=== PATIENT | female | born 1995 | race Caucasian/White ===

== ENCOUNTER 2016-06-02 15:09 | Emergency (ER) | payer OTHER ==
[~2016-06-02] VITALS: Ht 162.6 cm; Wt 66.1 kg
[~2016-06-02 15:09] MED LIST: MULT-240 PO; [UNRECOGNIZED DRUG - OTHER] PO
[2016-06-02 15:18] VITALS: BP 113/75; TEMP 37; O2SAT 100; Ht 162.6 cm; Wt 66.1 kg
[2016-06-02] MEDS ORDERED: PROPARACAINE HCL 0.5% OP SOLN 15 ML BTL OP STA (15:24)
[2016-06-02] MEDS ORDERED: CIPR0.3S OP (15:48)
[2016-06-02 16:04] VITALS: PULSE 82
--- NOTE | 2016-06-02 19:56 | EMERGENCY ROOM VISIT NOTE ---
ED Visit Note First contact with patient: 15:22 Chief Complaint: Conjunctivitis. History of Present Illness: Ms. Vides is a 21-year-old female who ambulates into the ED complaining of right eye pain, drainage and light sensitivity. Historically patient she has no previous significant eye disease and does wear contacts and reports a history of dry eyes. Patient reports for the last 2 weeks she has been having a burning and stinging pain in the right eye, she has noted injection of her sclera, she has been having light sensitivity, tearing and her eye is matted shut after sleep. She reports initially this was mild but has gradually increased in intensity. Currently she rates her discomfort 7/10. Her pain worsens with exposure to bright light and swelling decreases and she is in a darkened environment. She has not taken any medications for her discomfort prior to arrival at the hospital. In addition to the symptoms noted above she does report she feels like her vision is slightly more blurry. She denies recent trauma to the eye, fevers, chills, sweats, swelling or redness around the orbits, halos, flashing lights, floaters, puslike drainage, decrease in vision. Review of Systems: As noted above in history of present illness. Past Medical History: Patient denies. Current Medications: Multivitamins. Allergies to Medications: Patient denies. 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 Physical Examination: Vital Signs: Date Time Temp Pulse Resp B/P Pulse Ox O2 Delivery O2 Flow Rate FiO2 06/02/16 16:04 82 16 06/02/16 15:18 37.0 84 18 113/75 100 Room Air GENERAL: 21-year-old female in mild distress due to symptoms, nontoxic-appearing , afebrile and hemodynamically stable. NEUROLOGICAL: Awake, alert and oriented to person, place and time. Answering questions appropriately and following commands. Normal gait. Good hand eye coordination. No focal motor sensory deficits. SKIN: Warm, dry and pink. No soft tissue eruptions or trauma noted. HEENT: Atraumatic and normocephalic. Eyes: PERRLA. EOMI. Sclera injected and conjunctiva pink without drainage. Light sensitivity on examination. No foreign bodies noted under the eyelids are embedded in the cornea. Anterior chamber is clear. Visual acuity: 20/100 bilaterally without correction. Staining examination shows punctate uptake of the dye over most cornea and no corneal ulcers identified. ED Course: Patient is assessed as noted above. Alcaine was used to anesthetize the eye for examination. Patient was educated about tonight's findings and instructed on her treatment plan; she verbalized understanding and agreement with this plan. Clinical Impression: Right superficial punctate keratitis. Disposition: Patient discharged home in stable condition accompanied by a male friend; prior to departure she was reassessed and subjectively reported she was feeling better. Plan: Patient was prescribed Ciloxan ophthalmic drops and encouraged to use 2 drops in the right eye every 4 hours while awake for 5 days. Patient was encouraged to alternate ibuprofen and acetaminophen as needed for pain and to avoid direct sunlight with sunglasses. Patient was encouraged to return to the ED in 36-48 hours for recheck or sooner for any worsening/uncontrolled pain, visual changes, fevers, severe headaches or any new/concerning symptoms.
== END 2016-06-02 16:05 | disposition home or self-care (01) ==
LOC: C.EDB 15:10 → C.EDD 16:05
DX: H16.8 Other keratitis (principal)

== ENCOUNTER 2016-11-05 17:12 | Emergency (ER) | payer OTHER ==
[~2016-11-05] VITALS: Ht 162.6 cm; Wt 61.8 kg
[2016-11-05 17:22] VITALS: TEMP 36.7; Ht 162.6 cm; Wt 61.8 kg
--- NOTE | 2016-11-05 17:39 | EMERGENCY ROOM VISIT NOTE ---
History Report prepared by Aj: Ruth Lemons Under the Supervision of: Dr. Burton Haider M.D. First contact with patient: 17:25 Chief Complaint: VAGINAL BLEEDING Stated Complaint: BLEEDING, BLUE/BLACK VEINS ON ARM History of Present Illness The patient is a 21 year old female who presents to the Emergency Room with complaints of increasing vaginal bleeding starting today. She reports that the bleeding usually lasts 2-3 hours. The patient reports that sexual intercourse causes it and that she had these symptoms last spring. She also notes that her bilateral arms are bruised and that she can see her veins, which is not normal for her. The patient reports that she is not on control. The patient denies back pain, abdominal pain, headache, vomiting, diarrhea, pain with urination, and blood in her urine. She denies any recent trauma or injury. Source of History: patient, friend Onset: today Position: other (vagina ) Quality: other (bleeding ) Timing: other (increasing ) Associated Symptoms: No headache, No vomiting, No abdominal pain, No back pain, No diarrhea, No urinary symptoms Review of Systems See HPI for pertinent positives & negatives. A total of 10 systems reviewed and were otherwise negative. Past Medical & Surgical Medical Problems: (1) No active medical problems Family History Diabetes mellitus Social History Smoking Status: Never Smoker Drug Use: none Marital Status: in relationship Housing Status: lives with roommate Current/Historical Medications No Active Prescriptions or Reported Meds Allergies Coded Allergies: No Known Allergies (Unverified , 11/05/16) Physical Exam Vital Signs Date Time Temp Pulse Resp B/P (MAP) Pulse Ox O2 Delivery O2 Flow Rate FiO2 11/05/16 19:16 79 18 123/79 100 11/05/16 17:22 36.7 88 18 128/74 100 Room Air Physical Exam General: Well developed well nourished non-ill young female in no acute distress , breathing comfortably on room air. Normal speech HEENT: Normal cephalic atraumatic. Pupils are equal round and reactive to light. Extraocular movements are intact. Oropharynx is pink with moist mucous membranes. No swelling of the mouth lips or tongue. Neck: Supple with a midline trachea. No meningeal signs or stiffness, no JVD or bruits. No Stridor. Chest: Clear to auscultation bilaterally. No wheezes or rhonchi. No increased work of breathing. Heart: regular rate and rhythm. Abdomen: Soft nontender, nondistended without rebound guarding or rigidity. Extremities: No cyanosis clubbing or edema. No calf tenderness or assymetry Spine/Back. Non tender to palpation. No CVA tenderness Skin: Good turgor without rashes. Visible veins on both arms, no bruising or pathologic changes. Pelvic (In the presence of a female nurse sales communications manager): Normal external female genitalia, no lesions, normal cervix, small amount of dry blood, no lesions or discharge, no cervical motion tenderness, no adnexal masses or tenderness Neurologic exam: Cranial nerves two through 12 are intact. Motor and sensation are intact and symmetrical throughout. Medical Decision & Procedures Laboratory Results 11/05/16 18:14 Red Blood Count 4.50, Mean Corpuscular Volume 89.8, Mean Corpuscular Hemoglobin 30.4, Mean Corpuscular Hemoglobin Concent 33.9, Mean Platelet Volume 11.9, Neutrophils (%) (Auto) 55.5, Lymphocytes (%) (Auto) 34.2, Monocytes (%) (Auto) 7.4, Eosinophils (%) (Auto) 2.3, Basophils (%) (Auto) 0.4, Neutrophils # (Auto) 3.17, Lymphocytes # (Auto) 1.95, Monocytes # (Auto) 0.42, Eosinophils # (Auto) 0.13, Basophils # (Auto) 0.02 11/05/16 18:14 Test 11/05/16 18:14 11/05/16 18:30 White Blood Count 5.70 K/uL (4.8-10.8) Red Blood Count 4.50 M/uL (4.2-5.4) Hemoglobin 13.7 g/dL (12.0-16.0) Hematocrit 40.4 % (37-47) Mean Corpuscular Volume 89.8 fL (80-100) Mean Corpuscular Hemoglobin 30.4 pg (25-34) Mean Corpuscular Hemoglobin Concent 33.9 g/dl (32-36) Platelet Count 198 K/uL (130-400) Mean Platelet Volume 11.9 fL (7.4-10.4) Neutrophils (%) (Auto) 55.5 % Lymphocytes (%) (Auto) 34.2 % Monocytes (%) (Auto) 7.4 % Eosinophils (%) (Auto) 2.3 % Basophils (%) (Auto) 0.4 % Neutrophils # (Auto) 3.17 K/uL (1.4-6.5) Lymphocytes # (Auto) 1.95 K/uL (1.2-3.4) Monocytes # (Auto) 0.42 K/uL (0.11-0.59) Eosinophils # (Auto) 0.13 K/uL (0-0.5) Basophils # (Auto) 0.02 K/uL (0-0.2) RDW Standard Deviation 43.1 fL (36.4-46.3) RDW Coefficient of Variation 13.1 % (11.5-14.5) Immature Granulocyte % (Auto) 0.2 % Immature Granulocyte # (Auto) 0.01 K/uL (0.00-0.02) Anion Gap 8.0 mmol/L (3-11) Est Creatinine Clear Calc Drug Dose 83.4 ml/min Estimated GFR () 102.5 Estimated GFR (Non- 88.5 BUN/Creatinine Ratio 22.1 (10-20) Calcium Level 8.8 mg/dl (8.5-10.1) Human Chorionic Gonadotropin, Qual NEG (NEG) Date/Time Source Procedure Growth Status 11/05/16 18:30 Cervix Swab Trichomonas Preparation - Final Complete Laboratory studies as stated above per my review. Medications Administered Medications (Trade) Dose Ordered Sig/Nicolasa Route Start Time Stop Time Status Last Admin Dose Admin Sodium Chloride 1,000 ml @ 999 mls/hr Q1H1M STAT IV 11/05/16 17:41 11/05/16 18:41 DC 11/05/16 17:41 999 MLS/HR ED Course 1730: Past medical records reviewed. The patient was evaluated in room C7, and a complete history and physical examination were performed. 1741: Ordered Sodium Chloride 1,000 ml @ 999 mls/hr IV. 1918: Upon reevaluation, the patient is C7. I discussed the results and treatment plan with her. She verbalized agreement of the treatment plan. The patient was discharged home. Medical Decision Differentials include, but are not limited to; , infection, anemia, and ectopic . This patient comes in as described above she's had vaginal bleeding after intercourse. She appears well on exam. She's had no pain or discharge. On pelvic exam, she has no cervical motion tenderness or anything to suggest PID. She has no lesions. She's not anemic. She is not . The rest of her blood work is unremarkable . She was hydrated IV normal saline. She's remained stable. I recommend she follow up with the student health clinic and maybe see a lathe machinist this week. She should return if: increasing pain or bleeding, or symptoms, any new problems or concerns. She is happy the plan and discharged to home. Medication Reconcilliation Current Medication List: was personally reviewed by me Blood Pressure Screening Patient's blood pressure: Normal blood pressure Impression Primary Impression: Vaginal bleeding Scribe Attestation The scribe's documentation has been prepared under my direction and personally reviewed by me in its entirety. I confirm that the note above accurately reflects all work, treatment, procedures, and medical decision making performed by me. Departure Information Dispostion Home / Self-Care Prescriptions No Active Prescriptions or Reported Meds Referrals [facility] (PCP) Forms HOME CARE DOCUMENTATION FORM, IMPORTANT VISIT INFORMATION, WORK / SCHOOL INSTRUCTIONS Patient Instructions My [facility] Additional Instructions Rest. Return if: Increasing pain or bleeding, worsening of symptoms, fever or chills, any new problems or concerns. Follow-up with the student health clinic/ lathe machinist this coming week for recheck
[2016-11-05] MEDS ORDERED: SODIUM CHLORIDE 0.9% 1000ML 1,000 ML IV STA (17:41)
[2016-11-05 18:26] LABS: BASO % 0.4 %; BASO ABS # 0.02 K/uL (0-0.2); COMPLETE YES; EOS % 2.3 %; HEMATOCRIT 40.4 % (37-47); IG% 0.2 %; LYMPH % 34.2 %; LYMPH ABS # 1.95 K/uL (1.2-3.4); MEAN CELL VOLUME 89.8 fL (80-100); MEAN CORPUSCULAR HEMOGLOBIN 30.4 pg (25-34); MEAN CORPUSCULAR HGB CONC 33.9 g/dl (32-36); MEAN PLATELET VOLUME 11.9 fL (7.4-10.4); MONO % 7.4 %; NEUT % 55.5 %; PLATELET COUNT 198 K/uL (130-400)
[2016-11-05 18:42] LABS: BUN/CREATININE RATIO 22.1 (10-20); CALCIUM 8.8 mg/dl (8.5-10.1); CREATININE 0.93 mg/dl (0.60-1.20)
[2016-11-05 18:48] LABS: PREG INTERNAL NEGATIVE QC NEG CLEAR BACKGROUND; PREG INTERNAL POSITIVE QC POS CONTROL LINE
[2016-11-05 19:16] VITALS: BP 123/79; PULSE 79; O2SAT 100
[2016-11-08 14:29] LABS: CHLAMYDIA TRACH RNA*** DETECTED (NOT DETECTED); GC (NEIS GONORRHOEAE)RNA** NOT DETECTED (NOT DETECTED)
--- NOTE | 2016-11-10 19:02 | Pharmacy Progress Note ---
ED Pharmacist Culture FollowUp Date of Service: Nov 10, 2016. Called patient regarding Chlamydia culture. Notified of positive result. Patient denied abdominal/pelvic pain. Counseled on need for further outpatient followup for additional testing, need to notify all sexual partners, and to refrain from sexual activity for 1 month. Preferred pharmacy is [facility] - does not accept verbal prescriptions. Prescription for azithromycin 500 mg tab, 2 tab po once, 0 refill, handwritten on [facility] prescription pad and faxed to [phone] at the patient's request. Case discussed with Dr. Cavazos, who is the prescribing provider.
== END 2016-11-05 19:16 | disposition home or self-care (01) ==
LOC: C.EDB 17:12 → C.EDC 19:16
DX: N93.9 Abnormal uterine and vaginal bleeding, unspecified (principal)

== ENCOUNTER 2017-03-21 09:38 | Emergency (ER) | payer OTHER ==
[~2017-03-21] VITALS: Ht 162.6 cm; Wt 60.2 kg
[2017-03-21 09:43] VITALS: TEMP 36.8; Ht 162.6 cm; Wt 60.2 kg
[2017-03-21] MEDS ORDERED: ONDANSETRON INJ 2 MG/ML 2 ML VIAL IV STA (09:59)
[2017-03-21] MEDS ORDERED: SODIUM CHLORIDE 0.9% 1000ML 1,000 ML IV STA (09:59)
[2017-03-21 10:35] LABS: EOS % 1.1 %; EOS ABS # 0.08 K/uL (0-0.5); HEMATOCRIT 39.5 % (37-47); HEMOGLOBIN 13.5 g/dL (12.0-16.0); IG# 0.01 K/uL (0.00-0.02); LYMPH ABS # 1.29 K/uL (1.2-3.4); MEAN CELL VOLUME 89.4 fL (80-100); MEAN CORPUSCULAR HEMOGLOBIN 30.5 pg (25-34); MEAN CORPUSCULAR HGB CONC 34.2 g/dl (32-36); MEAN PLATELET VOLUME 12.6 fL (7.4-10.4); MONO % 5.2 %; MONO ABS # 0.37 K/uL (0.11-0.59); NEUT % 75.6 %; NEUT ABS # 5.43 K/uL (1.4-6.5); PLATELET COUNT 169 K/uL (130-400); RED CELL DISTRIBUTION WIDTH CV 12.8 % (11.5-14.5); RED CELL DISTRIBUTION WIDTH SD 41.7 fL (36.4-46.3); WHITE BLOOD COUNT 7.18 K/uL (4.8-10.8)
[2017-03-21 10:44] LABS: PTT PATIENT 30.2 SECONDS (21.0-31.0)
[2017-03-21 10:54] LABS: ALBUMIN 4.1 gm/dl (3.4-5.0); CALCIUM 9.1 mg/dl (8.5-10.1); CREATININE 0.64 mg/dl (0.60-1.20); POTASSIUM 3.8 mmol/L (3.5-5.1)
[2017-03-21 10:56] LABS: TOTAL PROTEIN 7.6 gm/dl (6.4-8.2)
[2017-03-21 11:39] VITALS: O2SAT 100
--- NOTE | 2017-03-21 13:06 | DIAGNOSTIC IMAGING REPORT ---
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 The endometrial stripe measured 6 mm. The right ovary measured 2.5 cm maximum dimension with normal vascular flow. The left ovary measured 3.1 cm maximum dimension with normal vascular flow. There is no ultrasonographic evidence of ovarian torsion. It should be noted that ovarian torsion can be present with normal Doppler ultrasonographic findings. There was no evidence of pathologic free pelvic fluid. IMPRESSION: Normal study The above report was generated using voice recognition software. It may contain grammatical, syntax or spelling errors. Electronically signed by: Jose De Jesus Tomlinson M.D. 03/21/2017 1:04 PM Dictated Date/Time: 03/21/2017 1:03 PM
[2017-03-21 13:45] VITALS: BP 107/62; PULSE 76; O2SAT 100
[2017-03-21] MEDS ORDERED: NORETHINDRONE ACETATE 5 MG TAB PO SCH (13:45)
--- NOTE | 2017-03-21 16:12 | EMERGENCY ROOM VISIT NOTE ---
History Report prepared by Aj: Phil Roger Under the Supervision of: Dr. aHrris Cavazos D.O. First contact with patient: 09:53 Chief Complaint: ED VAG BLEEDING Stated Complaint: EXCESSIVE BLEEDING History of Present Illness The patient is a 21 year old female who presents to the Emergency Room with complaints of worsening vaginal bleeding that started 2 and a half weeks ago. She states that it all started when her period was scheduled to start, and at first, the bleeding was very light. The patient notes that the bleeding has then progressively gotten heavier each day, and 2 days ago, her bleeding became so excessive that she is going through 1 pad every half hour. The patient states that she normally has heavy periods but never this heavy. She says that her periods are normally regular. She denies any abdominal pain, nausea, vomiting, diarrhea, or pain or burning with urination. She adds that she took Plan B a full month ago, and is not on control. She states that she was not at that time. She notes no chronic medical problems. The patient says that [employer] and [employer]S SALES REPRESENTAT[employer] do not take her insurance. She still has her gallbladder and appendix. Source of History: patient Onset: 2 and a half weeks ago Position: other (vaginal) Symptom Intensity: a pad every half hour Quality: other (bleeding) Timing: worsening Associated Symptoms: No nausea, No vomiting, No abdominal pain, No diarrhea , No urinary symptoms Note: No other associated symptoms noted. Review of Systems See HPI for pertinent positives & negatives. A total of 10 systems reviewed and were otherwise negative. Past Medical & Surgical Medical Problems: (1) No active medical problems Family History Diabetes mellitus Social History Smoking Status: Never Smoker Drug Use: none Marital Status: in relationship Housing Status: lives with roommate Current/Historical Medications No Active Prescriptions or Reported Meds Allergies Coded Allergies: No Known Allergies (Unverified , 03/21/17) Physical Exam Vital Signs Date Time Temp Pulse Resp B/P (MAP) Pulse Ox O2 Delivery O2 Flow Rate FiO2 03/21/17 13:45 76 16 107/62 100 Room Air 03/21/17 11:39 100 Room Air 03/21/17 11:39 64 16 108/69 100 Room Air 03/21/17 09:43 36.8 100 18 116/80 98 Room Air Physical Exam GENERAL: Sitting up in bed, alert, well appearing, well nourished, no distress, non-toxic EYE EXAM: normal conjunctiva. OROPHARYNX: no exudate, no erythema, lips, buccal mucosa, and tongue normal and mucous membranes are moist NECK: supple, no nuchal rigidity, no adenopathy, non-tender LUNGS: Clear to auscultation. Normal chest wall mechanics HEART: no murmurs, S1 normal and S2 normal ABDOMEN: abdomen soft, non-tender, normo-active bowel sounds, no masses, no rebound or guarding. : Normal external genitalia. Blood and clots in vaginal vault, removed with q- tips. Half-dollar sized clot removed. Vaginal vault continues to fill with small amount of blood from cervix which is closed. BACK: Back is symmetrical on inspection and there is no deformity, no midline tenderness, no CVA tenderness. SKIN: no rashes and no bruising UPPER EXTREMITIES: upper extremities are grossly normal. LOWER EXTREMITIES: No pitting edema. NEURO EXAM: Normal sensorium, cranial nerves II-XII grossly intact, normal speech, no gross weakness of arms, no gross weakness of legs. 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 The endometrial stripe measured 6 mm. The right ovary measured 2.5 cm maximum dimension with normal vascular flow. The left ovary measured 3.1 cm maximum dimension with normal vascular flow. There is no ultrasonographic evidence of ovarian torsion. It should be noted that ovarian torsion can be present with normal Doppler ultrasonographic findings. There was no evidence of pathologic free pelvic fluid. IMPRESSION: Normal study The above report was generated using voice recognition software. It may contain grammatical, syntax or spelling errors. Electronically signed by: Jose De Jesus Tomlinson M.D. 03/21/2017 1:04 PM Dictated Date/Time: 03/21/2017 1:03 PM Laboratory Results 03/21/17 10:12 Red Blood Count 4.42, Mean Corpuscular Volume 89.4, Mean Corpuscular Hemoglobin 30.5, Mean Corpuscular Hemoglobin Concent 34.2, Mean Platelet Volume 12.6, Neutrophils (%) (Auto) 75.6, Lymphocytes (%) (Auto) 18.0, Monocytes (%) (Auto) 5.2, Eosinophils (%) (Auto) 1.1, Basophils (%) (Auto) 0.0, Neutrophils # (Auto) 5.43, Lymphocytes # (Auto) 1.29, Monocytes # (Auto) 0.37, Eosinophils # (Auto) 0.08, Basophils # (Auto) 0.00 03/21/17 10:12 Test 03/21/17 10:12 03/21/17 13:04 White Blood Count 7.18 K/uL (4.8-10.8) Red Blood Count 4.42 M/uL (4.2-5.4) Hemoglobin 13.5 g/dL (12.0-16.0) Hematocrit 39.5 % (37-47) Mean Corpuscular Volume 89.4 fL (80-100) Mean Corpuscular Hemoglobin 30.5 pg (25-34) Mean Corpuscular Hemoglobin Concent 34.2 g/dl (32-36) Platelet Count 169 K/uL (130-400) Mean Platelet Volume 12.6 fL (7.4-10.4) Neutrophils (%) (Auto) 75.6 % Lymphocytes (%) (Auto) 18.0 % Monocytes (%) (Auto) 5.2 % Eosinophils (%) (Auto) 1.1 % Basophils (%) (Auto) 0.0 % Neutrophils # (Auto) 5.43 K/uL (1.4-6.5) Lymphocytes # (Auto) 1.29 K/uL (1.2-3.4) Monocytes # (Auto) 0.37 K/uL (0.11-0.59) Eosinophils # (Auto) 0.08 K/uL (0-0.5) Basophils # (Auto) 0.00 K/uL (0-0.2) RDW Standard Deviation 41.7 fL (36.4-46.3) RDW Coefficient of Variation 12.8 % (11.5-14.5) Immature Granulocyte % (Auto) 0.1 % Immature Granulocyte # (Auto) 0.01 K/uL (0.00-0.02) Prothrombin Time 10.8 SECONDS (9.0-12.0) Prothromb Time International Ratio 1.0 (0.9-1.1) Activated Partial Thromboplast Time 30.2 SECONDS (21.0-31.0) Partial Thromboplastin Ratio 1.2 Anion Gap 3.0 mmol/L (3-11) Est Creatinine Clear Calc Drug Dose 121.2 ml/min Estimated GFR () 148.9 Estimated GFR (Non- 128.5 BUN/Creatinine Ratio 17.5 (10-20) Calcium Level 9.1 mg/dl (8.5-10.1) Total Bilirubin 0.4 mg/dl (0.2-1) Aspartate Amino Transf (AST/SGOT) 9 U/L (15-37) Alanine Aminotransferase (ALT/SGPT) 15 U/L (12-78) Alkaline Phosphatase 73 U/L (45-117) Total Protein 7.6 gm/dl (6.4-8.2) Albumin 4.1 gm/dl (3.4-5.0) Globulin 3.5 gm/dl (2.5-4.0) Albumin/Globulin Ratio 1.2 (0.9-2) Urine Color YELLOW Urine Appearance CLEAR (CLEAR) Urine pH 7.0 (4.5-7.5) Urine Specific [place] 1.012 (1.000-1.030) Urine Protein NEG (NEG) Urine Glucose (UA) NEG (NEG) Urine Ketones NEG (NEG) Urine Occult Blood NEG (NEG) Urine Nitrite NEG (NEG) Urine Bilirubin NEG (NEG) Urine Urobilinogen NEG (NEG) Urine Leukocyte Esterase NEG (NEG) Urine WBC (Auto) 0 /hpf (0-5) Urine RBC (Auto) 0-4 /hpf (0-4) Urine Hyaline Casts (Auto) 1-5 /lpf (0-5) Urine Epithelial Cells (Auto) 10-20 /lpf (0-5) Urine Bacteria (Auto) NEG (NEG) Urine Test NEG (NEG) Laboratory results per my review. Medications Administered Medications (Trade) Dose Ordered Sig/Nicolasa Route Start Time Stop Time Status Last Admin Dose Admin Ondansetron HCl (Zofran Inj) 4 mg NOW STAT IV 03/21/17 09:59 03/21/17 10:01 DC 03/21/17 10:18 4 MG Sodium Chloride 1,000 ml @ 999 mls/hr Q1H1M STAT IV 03/21/17 09:59 03/21/17 10:59 DC 03/21/17 10:18 999 MLS/HR Norethindrone Acetate (Aygestin Tab) 10 mg ONE PO 03/21/17 13:45 03/21/17 14:30 DC 03/21/17 14:26 10 MG ED Course ED COURSE: Vital signs were reviewed and showed tachycardic vitals. The patients medical record was reviewed The above diagnostic studies were performed and reviewed. ED treatments and interventions as stated above. 0954: The patient was evaluated in room C9. A complete history and physical examination was performed. 0959: Ordered NSS 1000 ml @ 999 mls/hr IV, Zofran Inj 4 mg IV. 1155: I reevaluated the patient and she is going to US. 1329: I discussed the patient with Dr. Epi [facility]. 1335: Upon reevaluation, the patient is resting comfortably.I discussed my findings with the patient and she understands and agrees with the treatment plan. Based on the patients age, coexisting illnesses, exam and lab findings the decision to treat as an outpatient was made. The patient remained stable while under my care. The patient appeared well at the time of discharge. 1345: Ordered Aygestin Tab 10 mg PO. Medical Decision Differential diagnoses includes but is not limited to appendicitis, diverticulitis, small bowel obstruction, malignancy, hernia, urinary tract infection, torsion, and ectopic (if female), perforation, trauma, infectious. Patient is a 21-year-old female with no significant past medical history, who denies any bleeding disorders and blood thinners that presents to ER for vaginal bleeding which has been present for the past 10 days. She notes that the past 2 days and has worsened. Denies any other symptoms. No abdominal pain. CBC all BMP, LFTs, bilirubin was unremarkable. INR was normal. HGB was unremarkable and was negative. Ultrasound of the uterus was completely unremarkable. Discussed my findings with her on Aygestin. Patient was updated at bedside. She is given 10 mg now. She was discharged taken over 10 mg tonight and given discharge instructions on how to proceed from there. She will follow-up with OB as an outpatient and return for any worsening of her symptoms. Discussed with Pt concerning signs and symptoms to watch out for. Pt was instructed to follow up with their PCP and discussed with the patient their option to return to the ED at anytime for persistent or worsening symptoms. The appropriate anticipatory guidance and out-patient management, including indications for return to the emergency department, were explained at length to the patient and understood. Medication Reconcilliation Current Medication List: was personally reviewed by me Blood Pressure Screening Patient's blood pressure: Normal blood pressure Consults Time Called: 1320 Consulting Physician: Dr. Epi Lancaster Returned Call: 1329 I discussed the patient with Dr. Epi Lancaster. Impression Primary Impression: Vaginal bleeding Scribe Attestation The scribe's documentation has been prepared under my direction and personally reviewed by me in its entirety. I confirm that the note above accurately reflects all work, treatment, procedures, and medical decision making performed by me. Departure Information Dispostion Home / Self-Care Prescriptions No Active Prescriptions or Reported Meds Referrals No Doctor, Assigned (PCP) Canan. Saini MD Patient Instructions ED Bleed Irregular Vaginal, My [facility] [employer] Additional Instructions Please follow up with your primary care doctor with in the next 24 hours. Any worsening of your symptoms, please return to the ED immediately. This includes any fevers greater than 100.4, worsening pain, chest pain, shortness breath, persistent nausea, vomiting, unable to eat or drink, or any other concerning signs or symptoms from your standpoint. Please take Aygestin 10 mg tonight. Tomorrow you will take 5 mg 3 times a day until your bleeding decreases. When your bleeding decreases please start taking 5 mg twice a day. When her bleeding stops take 1 tab daily These follow-up with OB/Within the Next 2-3 Days.
--- NOTE | 2017-03-23 09:07 | DIAGNOSTIC IMAGING REPORT ---
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 The endometrial stripe measured 6 mm. The right ovary measured 2.5 cm maximum dimension with normal vascular flow. The left ovary measured 3.1 cm maximum dimension with normal vascular flow. There is no ultrasonographic evidence of ovarian torsion. It should be noted that ovarian torsion can be present with normal Doppler ultrasonographic findings. There was no evidence of pathologic free pelvic fluid. IMPRESSION: Normal study The above report was generated using voice recognition software. It may contain grammatical, syntax or spelling errors. Electronically signed by: Jose De Jesus Tomlinson M.D. 03/21/2017 1:04 PM Dictated Date/Time: 03/21/2017 1:03 PM
--- NOTE | 2017-03-23 17:55 | Pharmacy Progress Note ---
ED Pharmacist Progress Note Date of Service: Mar 23, 2017. Answered call from patient. She expressed concerns medication Aygestin, prescribed during visit is not working as she is still bleeding. Has not followed up with OB because no OB providers are covered by her insurance in the area. Says bleeding has not worsened but has not gotten better. Discussed with Dr. Shook who said patient can either come in for re-evaluation if concerned or follow up with closest insured OB or pay for uninsured OB visit. Relayed information to patient.
== END 2017-03-21 14:15 | disposition home or self-care (01) ==
LOC: C.EDB 09:40 → C.EDC 14:15
DX: N93.9 Abnormal uterine and vaginal bleeding, unspecified (principal)

== ENCOUNTER 2017-03-24 16:55 | Observation (INO) | payer OTHER ==
[~2017-03-24] VITALS: Ht 162.6 cm; Wt 61.0 kg
[2017-03-24] MEDS ORDERED: NORE5TAB5 PO (17:50)
[2017-03-24] MEDS ORDERED: SODIUM CHLORIDE 0.9% 1000ML 1,000 ML IV STA (18:06)
[2017-03-24 18:28] LABS: BASO % 0.2 %; BASO ABS # 0.01 K/uL (0-0.2); EOS % 2.1 %; EOS ABS # 0.11 K/uL (0-0.5); HEMATOCRIT 27.8 % (37-47); HEMOGLOBIN 9.6 g/dL (12.0-16.0); IG# 0.01 K/uL (0.00-0.02); LYMPH % 41.3 %; LYMPH ABS # 2.14 K/uL (1.2-3.4); MEAN CORPUSCULAR HEMOGLOBIN 30.4 pg (25-34); MEAN CORPUSCULAR HGB CONC 34.5 g/dl (32-36); MONO % 5.8 %; NEUT % 50.4 %; NEUT ABS # 2.61 K/uL (1.4-6.5); PLATELET COUNT 180 K/uL (130-400); RED CELL DISTRIBUTION WIDTH CV 12.7 % (11.5-14.5); RED CELL DISTRIBUTION WIDTH SD 41.1 fL (36.4-46.3); WHITE BLOOD COUNT 5.18 K/uL (4.8-10.8)
[2017-03-24 18:40] LABS: PTT PATIENT 28.4 SECONDS (21.0-31.0)
[2017-03-24 18:49] LABS: ALBUMIN 3.5 gm/dl (3.4-5.0); CALCIUM 8.3 mg/dl (8.5-10.1); CREATININE 0.81 mg/dl (0.60-1.20); POTASSIUM 3.8 mmol/L (3.5-5.1)
[2017-03-24 18:52] LABS: TOTAL PROTEIN 6.7 gm/dl (6.4-8.2)
--- NOTE | 2017-03-24 19:14 | EMERGENCY ROOM VISIT NOTE ---
History First contact with patient: 17:29 Chief Complaint: VAGINAL BLEEDING Stated Complaint: EXCESSIVE BLEEDING History of Present Illness The patient is a 21 year old female who presents to the Emergency Room with complaints of heavy vaginal bleeding. The patient states that she has had abnormal bleeding for the past month, started out as very light bleeding and occasional spotting, for the past week she has been bleeding more heavily. She does state that she took a Plan B approximately one month ago just prior to her symptoms starting. She was seen in the emergency department here on 03/21/17, had a workup and was diagnosed with dysfunctional uterine bleeding. She was started on Aygestin to manage this, which she states she has been taking 3 times a day as prescribed. She states that she has been having increased bleeding since last night, and has been going through 1 pad and one tampon every hour for the past several hours. She has also had associated dizziness, weakness and mild headaches today. She denies any abdominal pain or cramping, fevers or chills, syncope, chest pain, shortness of breath, palpitations, urinary symptoms. Review of Systems A complete 10 point review of systems was reviewed with the patient with pertinent positives and negatives as per history of present illness. All else were negative. Past Medical/Surgical History Medical Problems: (1) DUB (dysfunctional uterine bleeding) (2) Menorrhagia (3) No active medical problems Family History Diabetes mellitus Social History Smoking Status: Never Smoker Drug Use: none Marital Status: in relationship Housing Status: lives with roommate Occupation Status: [employer] student Current/Historical Medications Scheduled Norethindrone (Aygestin), 5 MG PO UD Allergies No known allergies Physical Exam Vital Signs Date Time Temp Pulse Resp B/P (MAP) Pulse Ox O2 Delivery O2 Flow Rate FiO2 03/24/17 21:25 84 16 114/71 99 03/24/17 19:43 85 16 116/70 99 Room Air 03/24/17 18:23 88 03/24/17 18:22 99 Room Air 03/24/17 18:20 85 107/67 100 Room Air 03/24/17 17:01 36.9 98 16 135/87 97 Room Air Physical Exam CONSTITUTIONAL: Pleasant and cooperative. No acute distress. Well hydrated and well nourished. HEENT: Normocephalic, atraumatic. Pupils equal, round and reactive to light, EOMI, pale conjunctiva bilaterally. TMs normal. Pharynx normal. Moist mucous membranes. NECK: Supple, full active range of motion without discomfort. RESPIRATORY: Clear to auscultation bilaterally with no wheezing, crackles, rhonchi or stridor. Equal expansion bilaterally. CARDIOVASCULAR: Regular rate and rhythm with no murmurs, rubs or gallops. Normal peripheral perfusion. No edema. GASTROINTESTINAL: Soft, nontender, nondistended. No palpable masses or HSM. Bowel sounds present in all quadrants. PELVIC EXAM: VULVA: No ulcers, vesicles or atrophy. VAGINA: Large clots within the vaginal vault, small amount of dark red blood, no foul odor. CERVIX : Fingertip open, small amount of bleeding through the cervical os, pink, nontender, no cervical motion tenderness, no discharge. UTERUS: Normal size, nontender. ADNEXA: No masses or tenderness. A nurse was present as a manager material during the examination. MUSCULOSKELETAL: Full range of motion of all joints without discomfort. INTEGUMENTARY: No rash or other significant dermatologic conditions noted. NEUROLOGIC: Alert and oriented X 4 with normal affect. Cranial nerves II-XII grossly intact. No focal neurologic deficits noted. Normal speech. Normal gait observed. Medical Decision & Procedures Laboratory Results 03/24/17 18:15 Red Blood Count 3.16, Mean Corpuscular Volume 88.0, Mean Corpuscular Hemoglobin 30.4, Mean Corpuscular Hemoglobin Concent 34.5, Mean Platelet Volume 12.0, Neutrophils (%) (Auto) 50.4, Lymphocytes (%) (Auto) 41.3, Monocytes (%) (Auto) 5.8, Eosinophils (%) (Auto) 2.1, Basophils (%) (Auto) 0.2, Neutrophils # (Auto) 2.61, Lymphocytes # (Auto) 2.14, Monocytes # (Auto) 0.30, Eosinophils # (Auto) 0.11, Basophils # (Auto) 0.01 03/24/17 18:15 Test 03/24/17 18:06 03/24/17 18:15 Urine Color YELLOW Urine Appearance CLEAR (CLEAR) Urine pH >= 9.0 (4.5-7.5) Urine Specific [place] 1.013 (1.000-1.030) Urine Protein NEG (NEG) Urine Glucose (UA) NEG (NEG) Urine Ketones NEG (NEG) Urine Occult Blood 1+ (NEG) Urine Nitrite NEG (NEG) Urine Bilirubin NEG (NEG) Urine Urobilinogen NEG (NEG) Urine Leukocyte Esterase NEG (NEG) Urine WBC (Auto) 0 /hpf (0-5) Urine RBC (Auto) 10-30 /hpf (0-4) Urine Hyaline Casts (Auto) 0 /lpf (0-5) Urine Epithelial Cells (Auto) 5-10 /lpf (0-5) Urine Bacteria (Auto) NEG (NEG) Urine Test NEG (NEG) White Blood Count 5.18 K/uL (4.8-10.8) Red Blood Count 3.16 M/uL (4.2-5.4) Hemoglobin 9.6 g/dL (12.0-16.0) Hematocrit 27.8 % (37-47) Mean Corpuscular Volume 88.0 fL (80-100) Mean Corpuscular Hemoglobin 30.4 pg (25-34) Mean Corpuscular Hemoglobin Concent 34.5 g/dl (32-36) Platelet Count 180 K/uL (130-400) Mean Platelet Volume 12.0 fL (7.4-10.4) Neutrophils (%) (Auto) 50.4 % Lymphocytes (%) (Auto) 41.3 % Monocytes (%) (Auto) 5.8 % Eosinophils (%) (Auto) 2.1 % Basophils (%) (Auto) 0.2 % Neutrophils # (Auto) 2.61 K/uL (1.4-6.5) Lymphocytes # (Auto) 2.14 K/uL (1.2-3.4) Monocytes # (Auto) 0.30 K/uL (0.11-0.59) Eosinophils # (Auto) 0.11 K/uL (0-0.5) Basophils # (Auto) 0.01 K/uL (0-0.2) RDW Standard Deviation 41.1 fL (36.4-46.3) RDW Coefficient of Variation 12.7 % (11.5-14.5) Immature Granulocyte % (Auto) 0.2 % Immature Granulocyte # (Auto) 0.01 K/uL (0.00-0.02) Prothrombin Time 10.9 SECONDS (9.0-12.0) Prothromb Time International Ratio 1.0 (0.9-1.1) Activated Partial Thromboplast Time 28.4 SECONDS (21.0-31.0) Partial Thromboplastin Ratio 1.1 Anion Gap 6.0 mmol/L (3-11) Est Creatinine Clear Calc Drug Dose 95.7 ml/min Estimated GFR () 121.2 Estimated GFR (Non- 104.6 BUN/Creatinine Ratio 11.5 (10-20) Calcium Level 8.3 mg/dl (8.5-10.1) Total Bilirubin 0.2 mg/dl (0.2-1) Aspartate Amino Transf (AST/SGOT) 28 U/L (15-37) Alanine Aminotransferase (ALT/SGPT) 27 U/L (12-78) Alkaline Phosphatase 52 U/L (45-117) Total Protein 6.7 gm/dl (6.4-8.2) Albumin 3.5 gm/dl (3.4-5.0) Globulin 3.2 gm/dl (2.5-4.0) Albumin/Globulin Ratio 1.1 (0.9-2) Medications Administered Medications (Trade) Dose Ordered Sig/Nicolaas Route Start Time Stop Time Status Last Admin Dose Admin Sodium Chloride 1,000 ml @ 999 mls/hr Q1H1M STAT IV 03/24/17 18:06 03/24/17 19:06 DC 03/24/17 18:22 999 MLS/HR Medical Decision CC: Patient presenting with complaint of heavy vaginal bleeding Interpretation of Labs: No leukocytosis, new anemia compared to previous labs 3 days ago, no significant electrolyte abnormality, normal renal function, normal liver enzymes. Coagulation factors within normal limits. UA negative for infection, shows large blood. Urine negative. Differential Diagnosis: Includes, but not limited to dysfunctional uterine bleeding, anemia, dehydration, , miscarriage among others. Medication Reconciliation: I attest that I have personally reviewed the patient' s current medication list. Vital signs review: I reviewed the patient's vital signs and interpret them as follows: T: Afebrile; BP: Normotensive; HR: Tachycardic; RR: Within normal limits; Pulse Ox: Within normal limits on room air. Blood pressure screening: The patient was found to have normal blood pressure on screening and does not require follow-up for repeat blood pressure check. Summary: Patient was evaluated at bedside, history and physical exam performed. Patient is alert and oriented, no acute distress and nontoxic appearing, resting calmly the stretcher. Patient appears well-hydrated, she does appear slightly pale in the conjunctiva , difficult to assess due to her darker skin tone. The abdomen is completely nontender to palpation. Patient was seen 3 days ago in the ED for same symptoms, she had a workup including a pelvic ultrasound which was normal, I do not feel repeat imaging is necessary at this time. Orders were placed at bedside for labs, UA and urine , IV fluids for hydration. Patient discussed with Dr. Fulton, who agrees with my assessment and plan. Pelvic exam performed at bedside, a few large clots within the vagina and slow active bleeding noted, cervical os fingertip open. Labs reviewed as above, notable for anemia, which compared to previous labs 3 days ago shows a 4-point drop in hemoglobin. I spoke with Dr. Hendrix, OB-FOUNDATION MAKER, who agrees to admit the patient. Patient updated on plan for admission, she is agreeable to this. Patient stable at time of admission. Impression Primary Impression: Abnormal vaginal bleeding Departure Information Referrals [facility] (PCP) Patient Instructions My [facility]
[2017-03-24] MEDS ORDERED: ONDANSETRON 4 MG TAB PO PRN (20:15)
[2017-03-24] MEDS ORDERED: IV FLUIDS COMPLETED PRN (21:45)
[2017-03-24 22:10] VITALS: BP 102/56; PULSE 98; TEMP 37.1; O2SAT 99; Ht 162.6 cm; Wt 61.0 kg
[2017-03-24] MEDS ORDERED: ACETAMINOPHEN 500 MG TAB PO SCH (23:00)
[2017-03-24] MEDS: NORETHINDRONE ACETATE 5 MG TAB PO SCH (23:19)
[2017-03-24 23:25] VITALS: BP 111/70; PULSE 93; TEMP 37; O2SAT 99
--- NOTE | 2017-03-25 03:23 | HISTORY & PHYSICAL EXAMINATION ---
DATE OF ADMISSION: 03/24/2017 HISTORY OF PRESENT ILLNESS: This patient is a 21-year-old G0 who was seen in the Emergency Room today for heavy vaginal bleeding. She was seen by Juliette Dasilva, physician assistant professor of nursing who called for a consult. The patient apparently was seen on 03/21/2017 for the same problem and discharged home on Aygestin. The patient reports the bleeding started on a scheduled menses which was 2 weeks ago. Prior to this she had regular menses with no problems. However, this month she took a plan B to prevent . She did get her period scheduled, period was however light. Two weeks later that is on 03/21/2017, she started to have heavy bleeding. Bleeding was heavy and she went through several pads. She came to the Emergency Room where she was evaluated. Her hemoglobin on that visit was 13. She was started on Aygestin as stated above. She was discharged home. Today, she is brought to the Emergency Room with more and worsening heavy bleeding. Her hemoglobin has dropped from 13 to 9. Her pulse was in the 100s. BROMINATION EQUIPMENT OPERATOR consult was therefore placed. On arrival to the bedside, she had no shortness of breath, no chills, no fever. The patient is alert and awake. She denies any syncope, chest pain or palpitations. PAST MEDICAL HISTORY: No history of GI bleed or menorrhagia. PAST SURGICAL HISTORY: None. SOCIAL HISTORY: The patient denies tobacco, drug or alcohol use. FAMILY HISTORY: Noncontributory. PHYSICAL EXAMINATION: VITAL SIGNS: Stable, except for pulse in the 100s. Last recorded vitals in the Emergency Room showed a temperature of 36.9, pulse of 98, respiration of 16, blood pressure 135/87. HEART: S1, S2, regular rhythm and rate. LUNGS: Clear to auscultation bilaterally. ABDOMEN: Nontender, nondistended, positive bowel sounds. PELVIC: The patient has a moderate amount of bright red blood in the vagina. Cervix appeared grossly normal. Uterus is about 6-8 weeks' size. EXTREMITIES: No cyanosis, clubbing or edema. ASSESSMENT AND PLAN: A 21-year-old with dysfunctional uterine bleeding. The patient has been seen this week in the Emergency Room from the same problem. Her hemoglobin has dropped from 13-9. I have therefore asked patient to be admitted overnight observation. The patient will be started on Aygestin 10 mg twice a day. If her bleeding is stabilized, she will be discharged home on the same medications and eventually will be started on oral contraceptive pills. The patient has agreed with plan. We will proceed with admission.
[2017-03-25 03:55] VITALS: BP 100/62; PULSE 83; TEMP 36.9; O2SAT 98
[2017-03-25 08:00] VITALS: BP 102/61; PULSE 83; TEMP 36.9; O2SAT 100
[2017-03-25] MEDS: NORETHINDRONE ACETATE 5 MG TAB PO SCH (09:06)
[2017-03-25] MEDS ORDERED: FERROUS SULFATE 325 MG TAB PO SCH (09:16)
[2017-03-25] MEDS ORDERED: NORGTAB36 PO (09:42)
[2017-03-25] MEDS ORDERED: AYG5 PO (09:42)
[2017-03-25] MEDS ORDERED: CLC100 PO (09:42)
[2017-03-25] MEDS ORDERED: FRRS300 PO (09:42)
--- NOTE | 2017-03-25 09:47 | Discharge Instructions ---
Discharge Instructions Date of Service Mar 25, 2017. Admission Reason for Admission: Dysfunctional Uterine Bleeding Discharge Discharge Diagnosis / Problem: and bleeding Discharge Goals Goal(s): Continuing [facility] care Activity Recommendations Activity Limitations: as noted below See HPI for pertinent positives & negatives. A total of 6 systems reviewed and were otherwise negative. . Current Hospital Diet Patient's current hospital diet: Discharge Diet Recommended Diet: Regular Diet Pending Studies Studies pending at discharge: no Medical Emergencies . Who to Call and When: Medical Emergencies: If at any time you feel your situation is an emergency, please call 911 immediately. . Non-Emergent Contact Non-Emergency issues call your: Specialist . . "Provider Documentation" section prepared by Johnie Hendrix. . VTE Core Measure Inpt VTE Proph given/why not?: Treatment not indicated
--- NOTE | 2017-03-25 09:54 | Progress Note ---
Progress Note Date of Service Mar 25, 2017. Progress Note S; Pt doing well. bleeding is much improved. feels better, no syncope, SOB or palpitation. passed 2 small clots O; VSS PE Ht; S1S2 R?R Lung; CTA bilat NO W/C/R ABD . NT. ND + BS EXT. NO C/C/E A/P DUB Anemia pt doing much better this AM pt wishes to be discharged,she has a meeting this AM AM H/H pending will d/c home with meds and instructions after stable h/g
[2017-03-25 10:17] LABS: HEMOGLOBIN 9.1 g/dL (12.0-16.0)
[2017-03-25 10:40] VITALS: BP 102/61; PULSE 83; TEMP 36.9; O2SAT 100
== END 2017-03-25 10:40 | disposition home or self-care (01) ==
LOC: C.EDB 16:57 → C.MS4N 20:37 → ENRESERV 21:17
PROVIDERS: ADMIT Obstetrics & Gynecology; ATTEND Obstetrics & Gynecology
DX: N93.8 Other specified abnormal uterine and vaginal bleeding (principal)